=== PATIENT | male | born 1975 | race Caucasian/White ===

== ENCOUNTER 2018-02-18 00:10 | Emergency (ER) | payer BC ==
--- NOTE | 2018-02-18 00:44 | ED ---
Back Pain - HPI Summary HPI Summary: Pt. is a 43 y.o male who presents to the ER for sudden onset of severe left flank pain that radiated into groin. Pt. states he took a dose of motrin and pain improved. Pt. also notes a difficult time urinating. Denies fever, chills, CP, SOB, N/V, testicle pain or swelling. No past medical hx. Symptoms are moderate in severity. No current modifying factors. Pt. denies recent injury/ falls, radicular pain in to legs, numbness, tingling or weakness. - History of Current Complaint Chief Complaint: EDBackInjuryPain Stated Complaint: LOWER BACK PAIN Time Seen by Provider: 02/18/18 00:21 Hx Obtained From: Patient Pain Intensity: 5 - Allergies/Home Medications Allergies/Adverse Reactions: Allergies Allergy/AdvReac Type Severity Reaction Status Date / Time tetanus toxoid, adsorbed Allergy Fever Verified 02/18/18 00:15 Home Medications: Home Medications NK [No Home Medications Reported] 02/18/18 [History Confirmed 02/18/18] PMH/Surg Hx/FS Hx/Imm Hx Previously Healthy: Yes Infectious Disease History: No Infectious Disease History: Denies: Traveled Outside the [place] in Last 30 Days Review of Systems Constitutional: Negative Negative: Fever, Chills Cardiovascular: Negative Respiratory: Negative Positive: Abdominal Pain. Negative: Vomiting, Diarrhea, Nausea Positive: flank pain, urgency All Other Systems Reviewed And Are Negative: Yes Physical Exam Triage Information Reviewed: Yes Vital Signs On Initial Exam: Initial Vitals Temp Pulse Resp BP Pulse Ox 97.0 F 54 15 104/82 100 02/18/18 00:11 02/18/18 00:11 02/18/18 00:11 02/18/18 00:11 02/18/18 00:11 Vital Signs Reviewed: Yes Appearance: Positive: Well-Appearing - Pt. sitting on bed in NAD. Skin: Positive: Warm, Dry Head/Face: Positive: Normal Head/Face Inspection Eyes: Positive: Normal, EOMI Neck: Positive: Supple Abdomen Description: Positive: Other: - Abd. is soft. Mild tenderness to LLQ. Mild left flank tenderness. Musculoskeletal: Positive: Normal, Strength/ROM Intact, Other - No midline back tenderness. Neurological: Positive: Normal, CN Intact II-III Psychiatric: Positive: Affect/Mood Appropriate Diagnostics - Vital Signs Vital Signs Temp Pulse Resp BP Pulse Ox 02/18/18 00:11 97.0 F 54 15 104/82 100 - Laboratory Result Diagrams: 02/18/18 00:39 02/18/18 00:39 Lab Statement: Any lab studies that have been ordered have been reviewed, and results considered in the medical decision making process. Back Pain Course/Dx - Course Course Of Treatment: Pt. presenting for an episode of left flank pain that radiated into left groin. His pain has mostly subsided and pain is currently 1/ 10. Suspect urolithiasis. Pt. is afebrile. Will check basic labs and urine. CBC and CMP are unremarkable. U/A shows elevated RBCs, no signs of infection. Results discussed with pt. Advised pt. a CT scan would be able to evaluate size and location of stone. Pt. does not wish to have any imaging done tonight. He is aware that if stone is large there is a change it will not pass on its own and he will need to see urology. Advised pt. to increase fluids, strain urine, tylenol and motrin for pain as directed. Advised to return to ER for increased pain, vomiting, fever, or if concerned. To call PCP tomorrow for f.u. Pt. understands and agrees with plan. - Diagnoses Differential Diagnosis/HQI/PQRI: Positive: Herniated Disc, Renal Colic, Strain, Sprain Provider Diagnoses: Flank pain, Hematuria Discharge - Sign-Out/Discharge Documenting (check all that apply): Patient Departure - Discharge Plan Condition: Good Disposition: HOME Patient Education Materials: Kidney Stones (ED) Referrals: Mary Gonzalez DO [Primary Care Provider] - Additional Instructions: Suspect you are passing a kidney stone based on your symptoms and microscopic blood in urine A CT scan was offered to you tonight to evaluate for a stone Schedule a follow up appointment with your PCP Increase fluids Can rotate between tylenol and motrin every 3 hours as directed for pain control Strain urine Return to ER for increased pain, vomiting, fever, or if concerned - Billing Disposition and Condition Condition: GOOD Disposition: Home
[2018-02-18 00:52] LABS: ABS Basophils 0 10^3/ul (0-0.2); ABS Eosinophils 0.1 10^3/ul (0-0.6); ABS Lymphocytes 2.4 10^3/ul (1.0-4.8); ABS Monocytes 0.5 10^3/ul (0-0.8); ABS Nucleated RBC 0 10^3/ul; Eosinophil % 1.1 % (0-6); Hematocrit 40 % (42-52); Hemoglobin 13.5 g/dl (14.0-18.0); Lymphocyte % 30.5 % (25-47); Mean Corpuscular HGB Conc 34 g/dl (31-36); Mean Corpuscular Hemoglobin 30 pg (27-31); Mean Corpuscular Volume 87 fL (80-94); Mean Platelet Volume 9.4 um3 (7.4-10.4); Nucleated Red Blood Cells % 0.1; Platelet Count 184 10^3/ul (150-450); Red Blood Count 4.57 10^6/ul (4.00-5.40); Red Cell Distribution Width 13 % (10.5-15)
[2018-02-18 01:51] LABS: Urine Appearance Clear; Urine Blood 2+ (Negative); Urine Color Yellow; Urine Ketones Negative (Negative); Urine Protein Negative (Negative); Urine Red Blood Cell 3+(>10/hpf) (Absent); Urine Specific Gravity 1.016 (1.010-1.030); Urine Urobilinogen Negative (Negative); Urine White Blood Cell Absent (Absent)
[2018-02-18 02:09] VITALS: BP 0/0
== END 2018-02-18 02:08 | disposition home or self-care (01) ==
LOC: ED 00:10
DX: R10.32 Left lower quadrant pain (principal); R31.9 Hematuria, unspecified; Z88.7 Allergy status to serum and vaccine
CPT/HCPCS: 36415; 80053; 81003; 81015; 85025; 99282